=== PATIENT | female | born 1985 | race African-American/Black ===

== ENCOUNTER 2021-06-07 05:22 | Emergency (ER) | payer OTHER, SELFPAY ==
--- NOTE | ~2021-06-07 | CT_ITS ---
EXAMINATION: CT SOFT TISSUE NECK WITH CONTRAST CLINICAL INFORMATION: Large abscess right side of neck COMPARISON: None TECHNIQUE: Following the intravenous administration of 60 mL of Omnipaque 350 intravenous contrast, helical imaging was performed in the axial plane with generation of coronal and sagittal reformatted images. This CT examination was performed using dose optimization techniques as appropriate, variously including the following: *Automated exposure control *Adjustment of mA and/or kV according to patient size (this includes techniques or standardized protocols for targeted exams where dose is matched to indication/reason for exam; i.e. extremities or head) *Use of iterative reconstruction technique DLP: 715 mGy-cm FINDINGS: There is skin thickening and soft tissue swelling of the right-sided the neck. The right sternocleidomastoid muscle appears enlarged compared to the right and there is a small amount of overlying fluid. There is a small focal fluid collection with enhancing wall seen in the medial right sternocleidomastoid muscle. This measures 1.3 x 1.3 cm in AP and transverse dimension and 1.5 cm in longitudinal dimension axial image 78 series 2 and sagittal reconstructed image 30. This is suggestive of an abscess. This is immediately adjacent to the right external jugular vein or a branch of the vein. If there is clinical concern of superficial thrombophlebitis, neck ultrasound in this area would be helpful. Vascular structures are otherwise unremarkable. The bilateral internal jugular veins are patent. There is shotty cervical lymphadenopathy. No enlarged lymph nodes are seen. The naso, jennifer-and hypopharynx and larynx are normal. The orbits are normal. Visualized intracranial structures are normal. Visualized paranasal sinuses, mastoid air cells and middle ears are clear. The salivary glands are normal. The thyroid gland is normal. Superior mediastinum is normal. There is atelectasis or scarring seen in the anterior segment of the right upper lobe. There are small clustered right upper lobe nodules suggestive of tree-in-bud appearance or airways disease. There is poor dentition. Bony structures are otherwise unremarkable. CT/CT soft tissue neck w con IMPRESSION: Enlarged medial right sternocleidomastoid muscle, overlying skin thickening, small amount of fluid and stranding of the fat suggestive of myositis. There is a small enhancing fluid collection in the medial muscle suggestive of an abscess measuring 1.3 x 1.3 x 1.5 cm. This is immediately adjacent to the right external jugular vein or branch of the right external jugular vein. Follow-up neck ultrasound to evaluate for possible septic thrombophlebitis may be helpful. Tree-in-bud appearance or small airways disease in the right upper lobe and right upper lobe atelectasis or scarring
[2021-06-07 05:35] VITALS: BP 101/53; PULSE 75; RESP 15; O2SAT 98; BMI 21.9
--- NOTE | 2021-06-07 06:36 | ED.SKABFB ---
HPI - Skin/Abscess/Foreign Bdy General Chief complaint: Skin/Abscess/Foreign Body Stated complaint: Abscess Time Seen by Provider: 06/07/21 06:36 Source: patient Mode of arrival: ambulatory Limitations: no limitations History of Present Illness complaint: abscess/boil Onset (ago): day(s) (2) Tetanus up to date: yes Location: neck Severity: moderate Quality: aching Pain Consistency: constant Relieving factors: none Exacerbating factors: palpation Context: IVDA Associated symptoms: other (vaginal discharge) Treatments prior to arrival: none Related Data Previous Rx's Medication Instructions Recorded cephalexin 500 mg capsule 500 mg PO TID 10 Days #30 cap 06/07/21 doxycycline hyclate 100 mg capsule 100 mg PO BID 10 Days #20 cap 06/07/21 Allergies Allergy/AdvReac Type Severity Reaction Status Date / Time No Known Allergies Allergy Verified 06/07/21 05:44 [No Known Allergies*] Review of Systems Review of Systems: Constitutional : No Fever, No Chills ENT/Mouth : No sore throat, No Rhinorrhea Eyes: No Eye Pain, No Swelling, No Redness Cardiovascular : No Chest Pain, No SOB Respiratory : No Cough, No Sputum Gastrointestinal : No Nausea, No Vomiting, No Diarrhea, No abdominal Pain Genitourinary : No Dysuria, No Hematuria, pos white vaginal discharge Musculoskeletal : No joint pain, No Myalgias, No Joint Swelling Skin : pos Skin Lesions, positive skin rash Neuro : No Weakness, No Numbness, No Headache Psych : No Anxiety, No Depression Heme/Lymph: No Bruising, No Bleeding,No Lymphadenopathy Endocrine : No Polyuria, No Polydipsia All other systems reviewed and are negative [facility] Past Medical History Attestation statement: The following information was validated with the patient. Medical History No known health problems Opiate abuse, continuous Social History Social History Alcohol intake: never Smoked in Last 30 Days: Yes Use of substances other than those prescribed or required for medical reasons: Yes Substance Use Type: Heroin and Marijuana Substance Use Frequency: Chronic Longstanding Last Used Substance: Just Prior to Admission Any prior treatment program specific to substance use: No Advance Directives: No Advance Directives Information Provided: No Patient : No Physical Exam Vital Signs: Vital Signs: Last Vital Signs Pulse 68 06/07/21 08:00 Resp 15 06/07/21 05:35 BP 119/79 06/07/21 08:00 Pulse Ox 100 06/07/21 08:00 Body Mass Index 21.9 Appearance: Alert. Oriented X3. No acute distress. Eyes: Pupils equal, round and reactive to light. ENT: Pharynx normal. Neck: R jugular area large 5cm fluctuant area noted under track sites - no point noted, ttp, voice normal tolerating secretions CVS: Normal heart rate and rhythm. Pulses normal. Respiratory: No respiratory distress. Breath sounds normal. Abdomen: Soft and nontender. Skin: Skin warm and dry. Normal skin color. diffuse track nieves on extremities noted Extremities: No lower extremity edema. No calf ttp Neuro: Oriented X 3. No motor deficit. No sensory deficit. Course Course Course Narrative: Vomiting in CT scan after test - zofran, benadryl, steroids ordered message sent to Dr. Borwn Addiction team aware given her desire for possible suboxone aspirated by Dr. Brown, suboxone providers have seen her. She refuses to stay in the hospital aware this could be affecting her muscles/vessels alert and oriented x 3. MDM - Skin/Abscess/Foreign Bdy MDM Narrative Medical decision making narrative: 35 yo female with IVDA here with R sided neck abscess overlying her vasculature area - at this time labs, IVF, IV vanco and zosyn ordered along with CT scan to assess the depth of the abscess. Will discuss with surgery recommendations for I/D. Also c/o vaginal discharge. panel ordered at this time. Lab Data Result diagrams: 06/07/21 08:00 06/07/21 08:00 Labs: Lab Results 06/07/21 06/07/21 06/07/21 Range/Units 07:38 07:38 08:00 WBC 6.0 (4.8-10.8) X10*3/uL RBC 4.16 L (4.20-5.50) X10*6/uL Hgb 12.1 (12.0-16.0) g/dl Hct 35.7 L (37-47) % MCV 85.8 (80-98) fL MCH 29.1 (27.0-33.0) pg MCHC 33.9 (31.0-35.0) g/dl RDW 14.4 (11.0-16.0) % Plt Count 192 (160-400) X10*3/uL MPV 10.5 (9.4-12.3) fL Immature Gran % (Auto) 0.2 (0.0-0.4) % Neut % (Auto) 46.2 (45-73) % Lymph % (Auto) 45.4 H (20-40) % Ware % (Auto) 5.7 (2-11) % Eos % (Auto) 2.2 (0-4) % Baso % (Auto) 0.3 (0-2) % Lymph # (Auto) 2.7 (1.2-4.9) X10*3/uL Ware # (Auto) 0.3 (0.1-1.2) X10*3/uL Eos # (Auto) 0.1 (0.0-0.4) X10*3/uL Baso # (Auto) 0.0 (0.0-0.2) X10*3/uL Abs Immat Gran (auto) 0.01 (0.00-0.03) X10*3/uL Absolute Neuts (auto) 2.8 (2.0-8.3) X10*3/uL Absolute Nucleated RBC 0.000 (0.0-0.012) X10*3/uL Nucleated RBC % (auto) 0.0 (0.0-0.2) /100WBC Sodium (135-145) mmol/L Potassium (3.3-5.1) mmol/L Chloride (96-108) mmol/L Carbon Dioxide (22-29) mmol/L Anion Gap (12-20) BUN (9-16) mg/dL Creatinine (0.5-1.4) mg/dL Estim Creat Clear Calc Estimated GFR Random Glucose (60-115) mg/dL Lactic Acid (0.5-2.0) mmol/L Calcium (8.4-10.2) mg/dL Beta HCG, Quant mIU/mL Urine Color YELLOW Urine Appearance HAZY Urine pH 5.5 (5.0-8.0) Ur Specific [place] 1.025 (1.005-1.025) Urine Protein NEG (NEG-TRACE) MG/DL Urine Glucose (UA) NEG (NEG) MG/DL Urine Ketones NEG (NEG) MG/DL Urine Blood NEG (NEG) Urine Nitrite NEG (NEG) Ur Leukocyte Esterase TRACE H (NEG) Urine RBC 0 (0) /HPF Urine WBC 0-2 (0-4) /HPF Ur Squamous Epith Cells 2+ /LPF Urine Bacteria 1+ /LPF Urine Test NEGATIVE (NEGATIVE) COVID-19 ([facility]) (Negative) COVID-19 Clin Com 06/07/21 06/07/21 06/07/21 Range/Units 08:00 08:00 08:00 WBC (4.8-10.8) X10*3/uL RBC (4.20-5.50) X10*6/uL Hgb (12.0-16.0) g/dl Hct (37-47) % MCV (80-98) fL MCH (27.0-33.0) pg MCHC (31.0-35.0) g/dl RDW (11.0-16.0) % Plt Count (160-400) X10*3/uL MPV (9.4-12.3) fL Immature Gran % (Auto) (0.0-0.4) % Neut % (Auto) (45-73) % Lymph % (Auto) (20-40) % Ware % (Auto) (2-11) % Eos % (Auto) (0-4) % Baso % (Auto) (0-2) % Lymph # (Auto) (1.2-4.9) X10*3/uL Ware # (Auto) (0.1-1.2) X10*3/uL Eos # (Auto) (0.0-0.4) X10*3/uL Baso # (Auto) (0.0-0.2) X10*3/uL Abs Immat Gran (auto) (0.00-0.03) X10*3/uL Absolute Neuts (auto) (2.0-8.3) X10*3/uL Absolute Nucleated RBC (0.0-0.012) X10*3/uL Nucleated RBC % (auto) (0.0-0.2) /100WBC Sodium 138 (135-145) mmol/L Potassium 4.2 (3.3-5.1) mmol/L Chloride 102 (96-108) mmol/L Carbon Dioxide 28 (22-29) mmol/L Anion Gap 12 (12-20) BUN 9 (9-16) mg/dL Creatinine 0.90 (0.5-1.4) mg/dL Estim Creat Clear Calc 79.2 Estimated GFR > 60 Random Glucose 66 (60-115) mg/dL Lactic Acid 1.5 (0.5-2.0) mmol/L Calcium 9.4 (8.4-10.2) mg/dL Beta HCG, Quant < 2 mIU/mL Urine Color Urine Appearance Urine pH (5.0-8.0) Ur Specific [place] (1.005-1.025) Urine Protein (NEG-TRACE) MG/DL Urine Glucose (UA) (NEG) MG/DL Urine Ketones (NEG) MG/DL Urine Blood (NEG) Urine Nitrite (NEG) Ur Leukocyte Esterase (NEG) Urine RBC (0) /HPF Urine WBC (0-4) /HPF Ur Squamous Epith Cells /LPF Urine Bacteria /LPF Urine Test (NEGATIVE) COVID-19 ([facility]) (Negative) COVID-19 Clin Com 06/07/21 Range/Units 08:01 WBC (4.8-10.8) X10*3/uL RBC (4.20-5.50) X10*6/uL Hgb (12.0-16.0) g/dl Hct (37-47) % MCV (80-98) fL MCH (27.0-33.0) pg MCHC (31.0-35.0) g/dl RDW (11.0-16.0) % Plt Count (160-400) X10*3/uL MPV (9.4-12.3) fL Immature Gran % (Auto) (0.0-0.4) % Neut % (Auto) (45-73) % Lymph % (Auto) (20-40) % Ware % (Auto) (2-11) % Eos % (Auto) (0-4) % Baso % (Auto) (0-2) % Lymph # (Auto) (1.2-4.9) X10*3/uL Ware # (Auto) (0.1-1.2) X10*3/uL Eos # (Auto) (0.0-0.4) X10*3/uL Baso # (Auto) (0.0-0.2) X10*3/uL Abs Immat Gran (auto) (0.00-0.03) X10*3/uL Absolute Neuts (auto) (2.0-8.3) X10*3/uL Absolute Nucleated RBC (0.0-0.012) X10*3/uL Nucleated RBC % (auto) (0.0-0.2) /100WBC Sodium (135-145) mmol/L Potassium (3.3-5.1) mmol/L Chloride (96-108) mmol/L Carbon Dioxide (22-29) mmol/L Anion Gap (12-20) BUN (9-16) mg/dL Creatinine (0.5-1.4) mg/dL Estim Creat Clear Calc Estimated GFR Random Glucose (60-115) mg/dL Lactic Acid (0.5-2.0) mmol/L Calcium (8.4-10.2) mg/dL Beta HCG, Quant mIU/mL Urine Color Urine Appearance Urine pH (5.0-8.0) Ur Specific [place] (1.005-1.025) Urine Protein (NEG-TRACE) MG/DL Urine Glucose (UA) (NEG) MG/DL Urine Ketones (NEG) MG/DL Urine Blood (NEG) Urine Nitrite (NEG) Ur Leukocyte Esterase (NEG) Urine RBC (0) /HPF Urine WBC (0-4) /HPF Ur Squamous Epith Cells /LPF Urine Bacteria /LPF Urine Test (NEGATIVE) COVID-19 ([facility]) Negative (Negative) COVID-19 Clin Com See Note Procedures EJ/Peripheral Line Arm R: Time Out Performed: Yes Skin Cleansed in Sterile Fashion: Yes Size (gauge): 20 IV Secured and Dressing Applied: No Patient Tolerated Procedure: well Discharge Plan Discharge Clinical Impression: Neck abscess, Cellulitis, Myositis Patient Disposition: Left Against Medical Advice Instructions: Cellulitis (ED), Abscess (ED), Against Medical Advice (ED) Additional Instructions: return to ED for any worsening symptoms or concerns please follow up with the suboxone clinic. we wanted to admit you but you refused this is serious infection involving your skin, muscles and possibly blood vessels. Please come back at any time Prescriptions: New doxycycline hyclate 100 mg capsule 100 mg PO BID 10 Days Qty: 20 RF: 0 cephalexin 500 mg capsule 500 mg PO TID 10 Days Qty: 30 RF: 0
[2021-06-07 08:00] VITALS: BP 119/79; PULSE 68; O2SAT 100
[2021-06-07 08:09] LABS: MANUAL DIFF FLAG NO
[2021-06-07 08:10] LABS: Basophils Percent Auto 0.3 % (0-2); Eosinophils Absolute Auto 0.1 X10*3/uL (0.0-0.4); Eosinophils Percent Auto 2.2 % (0-4); Hematocrit 35.7 % (37-47); Hemoglobin 12.1 g/dl (12.0-16.0); Imm Gran Abs Auto 0.01 X10*3/uL (0.00-0.03); Imm Gran Pct Auto 0.2 % (0.0-0.4); Lymphocytes Absolute Auto 2.7 X10*3/uL (1.2-4.9); Lymphocytes Percent Auto 45.4 % (20-40); Mean Corpuscular HGB Conc 33.9 g/dl (31.0-35.0); Mean Corpuscular Hemoglobin 29.1 pg (27.0-33.0); Mean Corpuscular Volume 85.8 fL (80-98); Mean Platelet Volume 10.5 fL (9.4-12.3); Monocytes Absolute Auto 0.3 X10*3/uL (0.1-1.2); Monocytes Percent Auto 5.7 % (2-11); Neutrophils Absolute Auto 2.8 X10*3/uL (2.0-8.3); Neutrophils Percent Auto 46.2 % (45-73); Platelet Count 192 X10*3/uL (160-400); Red Blood Count 4.16 X10*6/uL (4.20-5.50); Red Cell Distribution Width 14.4 % (11.0-16.0)
[2021-06-07 08:11] LABS: Glucose Urine UA NEG (NEG); Leukocyte Esterase Urine TRACE (NEG); Nitrite Urine NEG (NEG); PH 5.5 (5.0-8.0); Specific Gravity - Urine 1.025 (1.005-1.025); UACC Culture Trigger YES; Urine Blood NEG (NEG); Urine Ketones NEG (NEG); Urine Protein NEG (NEG-TRACE)
[2021-06-07 08:13] LABS: Appearance Urine HAZY; Color Urine YELLOW
[2021-06-07 08:14] LABS: UPreg QC Valid YES; Urine Pregnancy NEGATIVE (NEGATIVE)
[2021-06-07 08:20] LABS: Lactic Acid 1.5 mmol/L (0.5-2.0)
[2021-06-07 08:23] LABS: Bacteria Urine 1+ /LPF; RBC Urine 0 /HPF (0); Squamous Epithelial Cell Urine 2+ /LPF; WBC Urine 0-2 /HPF (0-4)
[2021-06-07 08:23] LABS: Anion Gap 12 (12-20); Blood Urea Nitrogen 9 mg/dL (9-16); Calcium 9.4 mg/dL (8.4-10.2); Carbon Dioxide 28 mmol/L (22-29); Chloride 102 mmol/L (96-108); Creatinine Clr Calc Pharmacy 79.2; Estimated Glomerular Filt Rate > 60; Glucose Random 66 mg/dL (60-115); Potassium 4.2 mmol/L (3.3-5.1); Sodium 138 mmol/L (135-145)
[2021-06-07 08:24] LABS: COVID-19 Test Negative (Negative)
[2021-06-07 08:29] LABS: HCG Quantitative < 2 mIU/mL
--- NOTE | 2021-06-07 08:36 | PC.NURSE ---
PT DIFFICULT TO OBTAIN IV ACCESS, DR BIGGS ABLE TO GET ACCESS VIA ULTRASOUND GUIDED # 20 L AC
[2021-06-07] MEDS: diphenhydrAMINE HCL 50 MG/ML VIAL 25 MG IVPUSH (08:53)
[2021-06-07] MEDS: methylPREDNISolone Sod Succ 125 MG/2 ML VIAL 60 MG IVPUSH (08:53)
[2021-06-07] MEDS: ondansetron HCL 4 MG/2 ML VIAL IVPUSH (08:53)
[2021-06-07] MEDS: vancomycin HCL 750 MG in 0.9 % Sodium Chloride 250 ML 265 MG IV (08:54)
[2021-06-07] MEDS: Piperacillin Sodium/Tazobactam 3.375 GM in 0.9 % Sodium Chloride 50 ML IV (08:54)
[2021-06-07] MEDS: 0.9 % Sodium Chloride 1,000 ML 999 ML IVCONT (08:59)
[2021-06-07] MEDS: iohexoL 350 MG/ML 100 ML INFUS..BTL IV (09:00)
--- NOTE | 2021-06-07 10:23 | PM.CNGS ---
History of Present Illness Consult details Consult date: 06/07/21 Requesting physician: Pat Sandoval Narrative: 35-year-old female presenting with pain and swelling in the right neck. She has a history of IV drug abuse and reports injecting this location approximately 2 days ago. She now has a area of swelling and pain which is making it difficult to turn her neck. She denies difficulty swallowing or breathing. She tried to aspirate the area swelling herself with a tuberculin syringe but was then able to obtain any fluid. She presented to the emergency department and was noted to have a normal WBC of 6.0. CT of the abdomen and pelvis however did reveal a fluid collection within the sternocleidomastoid muscle suggestive of an abscess. She denies fever, chills, nausea, or vomiting. Review of Systems Review of Systems: Yes all other systems are reviewed and are negative Constitutional: Constitutional: Denies chills and Denies fever(s) ENT: Denies change in voice, Denies dysphagia, Reports neck mass, Reports neck pain and Reports throat swelling Cardiovascular: Cardiovascular: Denies chest pain, Denies rapid heart rate and Denies irregular heart rhythm Respiratory: Respiratory: Reports no additional respiratory complaints Gastrointestinal: Gastrointestinal: Reports no additional gastrointestinal complaints and Denies dysphagia Genitourinary: Genitourinary: Reports vaginal discharge Musculoskeletal: Musculoskeletal: Reports no additional musculoskeletal complaints and Reports neck pain Integumentary/Breasts: Skin/Breast: Reports as per HPI Allergic/Immunologic: Allergic/Immunologic: Reports throat swelling PMFSH Past Medical History Medical History No known health problems Opiate abuse, continuous Social History Social History Alcohol intake: never Smoked in Last 30 Days: Yes Use of substances other than those prescribed or required for medical reasons: Yes Substance Use Type: Heroin and Marijuana Substance Use Frequency: Chronic Longstanding Last Used Substance: Just Prior to Admission Any prior treatment program specific to substance use: No Advance Directives: No Advance Directives Information Provided: No Patient : No Meds Allergies Allergy/AdvReac Type Severity Reaction Status Date / Time No Known Allergies Allergy Verified 06/07/21 05:44 [No Known Allergies*] Physical Exam Vital Signs: Vital Signs: Last Vital Signs Pulse 68 06/07/21 08:00 Resp 15 06/07/21 05:35 BP 119/79 06/07/21 08:00 Pulse Ox 100 06/07/21 08:00 Body Mass Index 21.9 Const: General: cooperative, alert and awake Nutritional Appearance: thin Orientation/consciousness: patient oriented x3 Limitations: no limitations HENMT: Head: Yes normocephalic and Yes atraumatic Neck: Other: Area swelling in the right sternocleidomastoid middle 3rd, swelling measured approximately 2 to 3 cm in diameter with surrounding erythema. Neck is tender to palpation. No lymphadenopathy is appreciated. No bleeding or discharge is noted. Multiple track nieves are noted in the right neck over the external jugular. Neck images: 1. Site of abscess right neck Resp: Effort & Inspection: normal respiratory effort, no audible wheezes, no cough and no respiratory distress GI: Inspection: Yes normal to inspection Skin: General skin exam: no rashes or lesions noted Neuro: General: patient oriented x3 Extrem: General: Yes no clubbing, cyanosis or edema Results Labs Result diagrams: 06/07/21 08:00 06/07/21 08:00 Labs: Abnormal lab results 06/07/21 06/07/21 Range/Units 07:38 08:00 RBC 4.16 L (4.20-5.50) X10*6/uL Hct 35.7 L (37-47) % Lymph % (Auto) 45.4 H (20-40) % Ur Leukocyte Esterase TRACE H (NEG) Short CBC 06/07/21 Range/Units 08:00 WBC 6.0 (4.8-10.8) X10*3/uL Hgb 12.1 (12.0-16.0) g/dl Hct 35.7 L (37-47) % Plt Count 192 (160-400) X10*3/uL BMP 06/07/21 08:00 Sodium 138 Potassium 4.2 Chloride 102 Carbon Dioxide 28 BUN 9 Creatinine 0.90 Calcium 9.4 Urine 06/07/21 06/07/21 Range/Units 07:38 07:38 Urine Color YELLOW Urine Appearance HAZY Urine pH 5.5 (5.0-8.0) Ur Specific [place] 1.025 (1.005-1.025) Urine Protein NEG (NEG-TRACE) MG/DL Urine Glucose (UA) NEG (NEG) MG/DL Urine Test NEGATIVE (NEGATIVE) All other labs normal. Assessment and Plan (1) Neck abscess: Status: Acute 35-year-old female presenting with neck abscess due to IV drug abuse. CT of the neck reveals a fluid collection within the sternocleidomastoid with an enhancing rim suggestive of an abscess. On examination the patient does indeed have an area swelling within the sternocleidomastoid felt best with the neck turned towards the left. I recommended a percutaneous drainage and after discussion of the procedure, risks, and alternatives, she consents to the procedure. The procedure was performed at the bedside with approximately 3 mL of thick purulence material aspirated. Wound cultures were sent of the fluid. The patient tolerated the procedure well with no apparent complications. Procedures Date of Service Date of Service: 06/07/21 Procedure Note Procedure Note: Preoperative diagnosis: Abscess right neck, sternocleidomastoid muscle Postoperative diagnosis: Same Procedure: Needle aspiration abscess right neck, sternocleidomastoid muscle Surgeon: Edwin Brown MD [employer] Laminating Operator: No physician Anesthesia: Local Indications for procedure: 35-year-old female presenting with area swelling and pain in the right neck after injecting IV drugs. CT confirms an abscess within the sternocleidomastoid. Operative findings: Aspirated approximately 3 mL of thick brownish purulence. Specimen: Wound culture Estimated blood loss: 0 Complications: None Procedure details: Procedure was performed at the bedside in the emergency department. After confirming the site of the procedure and ensuring informed consent, the right neck was prepped with Betadine and draped in a sterile fashion. Local anesthesia consisting of 1% lidocaine was infiltrated in the skin overlying the palpable abscess. An 18 gauge needle was then advanced into the abscess cavity. Approximately 3 mL of thick brownish fluid was aspirated. This was sent for wound culture. Pressure was held to maintain hemostasis. The patient tolerated the procedure well with no apparent complications.
--- NOTE | 2021-06-07 10:49 | MHC.RECOVSUP ---
Recovery Support note: Patient is a 35 year old [place] speaking female who [place] [facility] [place] due to a [place] on her neck. This marketing copywriter met with patient to discuss her substance use and recovery supports. Patient reports that she was sober for 5 months and relapsed after connecting with an old friend. Patient reports she plans to go to detox and cut that friend out of her life. Discussed detox treatment with patient and provided her with information on facilities in [place]. Discussed medications for opioid use disorder with patient. Patient expressed interest in Suboxone and reports she has never been on it in the past. Discussed Suboxone and Sublocade with patient. Provided patient with information on the [facility] and other clinics in the area. Discussed outpatient supports including [facility] and IOP with patient and provided patient with information on these supports. Discussed with patient why she doesn't want to stay in the hospital even though she has plans to go to detox. Patient reports she has time to prepare herself to go to detox and that she absolutely does not want to spend the night in the hospital. Patient became visibly upset and requested that staff do not ask her to remain again. This marketing copywriter provided patient with contact information for this marketing copywriter in the event that she has any additional questions or concerns. Discussed case with patient's RN and ED provider.
[2021-06-07 11:36] LABS: CT PCR NOT DETECTED (Not Detect.); NG PCR NOT DETECTED (Not Detect.)
[2021-06-08 12:40] LABS: BV Int Neg Control Negative (Negative); BV Int Pos Control Positive (Positive)
== END 2021-06-07 11:31 | disposition left against medical advice (07) ==
PROVIDERS: Emergency Provider Emergency Medicine
DX: L02.11 Cutaneous abscess of neck (principal); M60.9 Myositis, unspecified; F11.10 Opioid abuse, uncomplicated; Z20.822 Contact with and (suspected) exposure to COVID-19; Z71.51 Drug abuse counseling and surveillance of drug abuser; Z79.899 Other long term (current) drug therapy
CPT/HCPCS: 36415; 36569; 70491; 80048; 81001; 81025; 83605; 84702; 85025; 87040; 87071; 87073; 87086; 87186; 87205; 87480; 87491; 87510; 87591; 87635; 87660; 96365; 96372; 96375; 99284; J1200; J2405; J2543; J2930; J3370; Q9967

== ENCOUNTER 2024-05-30 18:51 | Emergency (ER) | payer OTHER, SELFPAY ==
[2024-05-30 19:28] VITALS: BP 97/57; PULSE 84; RESP 14; TEMP 36.9; O2SAT 98; BMI 24.4
[2024-05-30 19:29] LABS: MANUAL DIFF FLAG NO
--- NOTE | 2024-05-30 19:30 | ED.ABDPAIN ---
HPI - Abdominal Pain General Chief Complaint: Urogenital-Female Stated Complaint: possible kidney infection Time Seen by Provider: 05/30/24 22:44 Source: patient Mode of arrival: ambulatory Limitations: no limitations History of Present Illness ED Provider: Dr. Felder HPI narrative: patient has a history of polysubstance abuse and frequent kidney infections with presents with left flank pain for the past few days. She denies fever or dysuria but states in the past she has not had those symptoms with her kidney infections MD elicited complaint: flank pain Onset (ago): day(s) Pain Consistency: constant Related Data Previous Rx's ?Medication ?Instructions ?Recorded cephalexin 500 mg capsule 500 mg PO TID 10 days #30 caps 06/07/21 doxycycline hyclate 100 mg capsule 100 mg PO BID 10 days #20 caps 06/07/21 fluconazole 150 mg tablet 150 mg PO Q3D 2 doses #2 tabs 06/11/21 (Diflucan) metronidazole 0.75 % (37.5 mg/5 1 appful vaginal BEDTIME 5 days 06/11/21 gram) vaginal gel #70 grams cephalexin 500 mg capsule 500 mg PO Q6H 7 days #28 caps 05/31/24 Allergies Allergy/AdvReac Type Severity Reaction Status Date / Time No Known Allergies Allergy Verified 05/30/24 19:29 [No Known Allergies*] Review of Systems Review of Systems Yes all other systems are reviewed and are negative Denies Sensory deficit (Neuro) PMFSH Past Medical History Medical History Opiate abuse, continuous No known health problems Social History Social History Alcohol intake: never Substance Use Type: Heroin and Marijuana Advance Directives: No Advance Directives Information Provided: No Do you have a plan to hurt others: No Plan Physical Exam ED Vital Signs: Vital Signs - 24 hr 05/30/24 19:28 Temperature 98.4 F Pulse Rate 84 Respiratory Rate 14 Blood Pressure 97/57 L Pulse Oximetry 98 Oxygen Delivery Method Room Air BMI result Body Mass Index 24.4 Const Other: cachectic unkept female looking much older than stated age Nutritional Appearance: average body habitus Orientation/consciousness: oriented to person and patient oriented x3 Limitations: no limitations HENMT Head: Yes normal to inspection Ears: external ears normal General nose exam: Normal external nose present Mouth: Normal oral and palatal mucosa present and oropharynx normal Throat: Yes posterior oropharynx normal Eyes General: appearance normal, both eyes and all related structures Neck Neck: Yes normal visual inspection Chest Chest palpation & inspection: normal inspection of the chest Resp Auscultation: clear to auscultation bilaterally Cardio Jugular venous distension: no JVD Rate: regular rate Rhythm: regular rhythm Heart sounds: S1 normal heart sound present and S2 normal heart sound present GI Inspection: Yes normal to inspection Palpation (GI): Soft to palpation, nontender and No hepatosplenomegaly present Auscultation: normal bowel sounds General: Yes no CVA tenderness Back/Spine/Pelvis Back: no CVA tenderness Skin General skin exam: no rashes or lesions noted Neuro General: oriented to person and patient oriented x3 Cranial nerves: Yes CN's II-XII intact bilaterally Motor exam (neuro): 5/5 motor strength present throughout Sensory Exam: No Sensory deficit (Neuro) Extrem General: Yes normal to inspection Psych Appearance: grossly normal Course Course Course Narrative: This is an RME done by CARRIE Cifuentes: Additional HPI, ROS, PE not included below will be deferred to primary provider. 38 year old female hx of IVDA presents w/ L sided flank pain x few days hx of kidney infections in the past. No fevers, chills, cp, sob, nausea, vomiting, urinary change Appearance: Alert.? Oriented X3.? No acute cardiopulmonary distress distress.? Head: Normocephalic, atraumatic, no step-offs or deformities CVS: Pulses normal.? Respiratory: No respiratory distress.? Abdomen: Soft and nontender.? Skin: ? Normal skin color. Extremities: 5/5 strength to bilateral upper and lower extremities Back: No CVA tenderness bilaterally Neuro: Oriented X 3.? No motor deficit.? No sensory deficit. Reevaluation(s) Reevaluation #1: Patient is an active substance abuser with flank pain, urine shows increased WBC but is not a clean catch, however given her substance abuse I will treat for pyelonephritis rather than wait for cultures as she is not a reliable patient. Will treat with keflex Time: 00:06 Medical Decision Making Differential Diagnosis Differential Diagnoses: The differential diagnosis associated with the presentation includes (UTI, pyelonephritis, polysubstance abuse) Admission/Observation Consideration of admission/observation: Escalation of care including admission/observation considered (upon arrival patient considered for admission) Lab Data 05/30/24 19:23 05/30/24 19:23 Labs: Lab Results 05/30/24 05/30/24 Range/Units 19:23 23:16 WBC 5.6 (4.8-10.8) X10*3/uL RBC 3.59 L (4.20-5.50) X10*6/uL Hgb 11.2 L (12.0-16.0) g/dl Hct 31.1 L (37.0-47.0) % MCV 86.6 (80.0-98.0) fL MCH 31.2 (27.0-33.0) pg MCHC 36.0 H (31.0-35.0) g/dl RDW 12.8 (11.0-16.0) % Plt Count 137 L (160-400) X10*3/uL MPV 10.2 (9.4-12.3) fL Immature Gran % (Auto) 0.2 (0.0-0.4) % Neut % (Auto) 76.6 H (45-73) % Lymph % (Auto) 20.1 (20-40) % [place] % (Auto) 2.0 (2-11) % Eos % (Auto) 0.7 (0-4) % Baso % (Auto) 0.4 (0-2) % Lymph # (Auto) 1.1 L (1.2-4.9) X10*3/uL [place] # (Auto) 0.1 (0.1-1.2) X10*3/uL Eos # (Auto) 0.0 (0.0-0.4) X10*3/uL Baso # (Auto) 0.0 (0.0-0.2) X10*3/uL Abs Immat Gran (auto) 0.01 (0.00-0.03) X10*3/uL Absolute Neuts (auto) 4.3 (2.0-8.3) x10*3/uL Absolute Nucleated RBC 0.000 (0.0-0.012) X10*3/uL Nucleated RBC % (auto) 0.0 (0.0-0.2) /100WBC Sodium 140 (135-145) mmol/L Potassium 4.0 (3.3-5.1) mmol/L Chloride 105 (96-108) mmol/L Carbon Dioxide 28 (22-29) mmol/L Anion Gap 11 L (12-20) BUN 11 (9-16) mg/dL Creatinine 0.87 (0.5-1.4) mg/dL Estim Creat Clear Calc 72.8 Estimated GFR > 60 Random Glucose 92 (60-115) mg/dL Calcium 9.6 (8.4-10.2) mg/dL Total Bilirubin 0.5 (0.0-1.0) mg/dL AST 39 H (5-31) U/L ALT 38 H (0-31) U/L Alkaline Phosphatase 82 (39-117) U/L Total Protein 8.0 (6.5-8.0) g/dL Albumin 4.1 (3.5-5.0) g/dL Beta HCG, Quant < 2 mIU/mL Urine Color Yellow Urine Appearance Cloudy Urine pH 5.5 (5.0-9.0) Ur Specific [place] 1.020 (1.005-1.025) Urine Protein Negative (Neg-Trace) mg/dL Urine Glucose (UA) Negative (Negative) mg/dL Urine Ketones Trace (Negative) mg/dL Urine Blood Negative (Negative) Urine Nitrite Negative (Negative) Ur Leukocyte Esterase Small (1+) H (Negative) Urine RBC 0-2 (0-2) /HPF Urine WBC 11-20 H (0-5) /HPF Ur Squamous Epith Cells >20 (0-2) /HPF Urine Bacteria 4+ (None Seen) Hyaline Casts 0-2 (0-2) /LPF Urine Opiates Screen POSITIVE H (Not Detect) Ur Buprenorphine Scrn Not Detected (Not Detect) ng/mL Ur Oxycodone Screen Not Detected (Not Detect) ng/mL Urine Methadone Screen Positive H (Not Detect) ng/mL Urine Fentanyl Screen POSITIVE H (Not Detect) Ur Barbiturates Screen Not Detected (Not Detect) Ur Phencyclidine Scrn Not Detected (Not Detect) Ur Amphetamines Screen Not Detected (Not Detect) U Benzodiazepines Scrn Not Detected (Not Detect) Urine Cocaine Screen POSITIVE H (Not Detect) U Marijuana (THC) Screen POSITIVE H (Not Detect) Independent Historian Clinical information obtained from an independent historian. History obtained from or confirmed by: Friend Tests considered The following testing was considered but not selected: CT of abd/pelvis but patient with no blood in UA and prior history of pyelonephritis Chronic Conditions Patient?s care impacted by: Other (polysubstance abuse) Social Determinants Patient?s care significantly limited by Social Determinants of Health including: Inadequate housing, Low income and Alcoholism and drug addiction in family Discharge Plan Discharge Clinical Impression: Pyelonephritis Patient Disposition: Home, Self-Care Instructions: Kidney Infection (ED) Prescriptions: New cephalexin 500 mg capsule 500 mg PO Q6H 7 Days Qty: 28 0RF No Action doxycycline hyclate 100 mg capsule 100 mg PO BID 10 Days Qty: 20 0RF cephalexin 500 mg capsule 500 mg PO TID 10 Days Qty: 30 0RF fluconazole [Diflucan] 150 mg tablet 150 mg PO Q3D Qty: 2 0RF Rx Instructions: may repeat second dose 72 hrs after first dose if symptoms persist metronidazole 0.75 % gel 1 appful vaginal BEDTIME 5 Days Qty: 70 0RF Referrals: Physician,Unknown J [Primary Care Provider] - 3 days Print Language: Azeri
[2024-05-30 19:34] LABS: Basophils Percent Auto 0.4 % (0-2); Eosinophils Percent Auto 0.7 % (0-4); Hematocrit 31.1 % (37.0-47.0); Hemoglobin 11.2 g/dl (12.0-16.0); Imm Gran Abs Auto 0.01 X10*3/uL (0.00-0.03); Imm Gran Pct Auto 0.2 % (0.0-0.4); Lymphocytes Absolute Auto 1.1 X10*3/uL (1.2-4.9); Lymphocytes Percent Auto 20.1 % (20-40); Mean Corpuscular Hemoglobin 31.2 pg (27.0-33.0); Mean Corpuscular Volume 86.6 fL (80.0-98.0); Mean Platelet Volume 10.2 fL (9.4-12.3); Monocytes Absolute Auto 0.1 X10*3/uL (0.1-1.2); Neutrophils Absolute Auto 4.3 x10*3/uL (2.0-8.3); Neutrophils Percent Auto 76.6 % (45-73); Platelet Count 137 X10*3/uL (160-400); Red Blood Count 3.59 X10*6/uL (4.20-5.50); Red Cell Distribution Width 12.8 % (11.0-16.0); White Blood Count 5.6 X10*3/uL (4.8-10.8)
[2024-05-30 19:58] LABS: Alanine Aminotransferase 38 U/L (0-31); Albumin Level 4.1 g/dL (3.5-5.0); Alkaline Phosphatase 82 U/L (39-117); Anion Gap 11 (12-20); Aspartate Amino Transferase 39 U/L (5-31); Bilirubin Total 0.5 mg/dL (0.0-1.0); Blood Urea Nitrogen 11 mg/dL (9-16); Calcium 9.6 mg/dL (8.4-10.2); Carbon Dioxide 28 mmol/L (22-29); Chloride 105 mmol/L (96-108); Creatinine Clr Calc Pharmacy 72.8; Estimated Glomerular Filt Rate > 60; Glucose Random 92 mg/dL (60-115); Sodium 140 mmol/L (135-145)
[2024-05-30 20:06] LABS: HCG Quantitative < 2 mIU/mL
[2024-05-30 23:29] LABS: Appearance Urine Cloudy; Color Urine Yellow; Glucose Urine UA Negative (Negative); Leukocyte Esterase Urine Small (1+) (Negative); Nitrite Urine Negative (Negative); PH 5.5 (5.0-9.0); UMIC TRIGGER UACC YES; Urine Blood Negative (Negative); Urine Ketones Trace mg/dL (Negative); Urine Protein Negative (Neg-Trace)
[2024-05-30 23:34] LABS: Bacteria Urine 4+ (None Seen); Hyaline Casts Urine 0-2 /LPF (0-2); RBC Urine 0-2 /HPF (0-2); Squamous Epithelial Cell Urine >20 /HPF (0-2); UACC Culture Trigger YES
[2024-05-30 23:35] LABS: Amphetamine Screen Urine Not Detected (Not Detect); Barbiturates, Urine Not Detected (Not Detect); Benzodiazepines Screen Urine Not Detected (Not Detect); Buprenorphine Scr Not Detected (Not Detect); Cannabinoid Screen Urine POSITIVE (Not Detect); Cocaine Screen Urine POSITIVE (Not Detect); Fentanyl, urine POSITIVE (Not Detect); Methadone Screen, Urine Positive (Not Detect); Opiate Screen Urine POSITIVE (Not Detect); Oxycodone Screen Urine Not Detected (Not Detect); Phencyclidine Screen Urine Not Detected (Not Detect)
[2024-05-31] MEDS: cephALEXin 500 MG CAPSULE PO (00:30)
[2024-05-31 00:50] VITALS: BP 104/68; PULSE 77; RESP 18; TEMP 36.8; O2SAT 97
== END 2024-05-31 00:30 | disposition home or self-care (01) ==
PROVIDERS: Physician Assistant; Emergency Provider Emergency Medicine
DX: N12 Tubulo-interstitial nephritis, not specified as acute or chronic (principal); F19.10 Other psychoactive substance abuse, uncomplicated; Z79.899 Other long term (current) drug therapy
CPT/HCPCS: 36415; 80053; 80307; 81001; 84702; 85025; 87086; 99282; 99283